=== PATIENT | female | born 1970 | race American Indian/Alaskan Native ===

== ENCOUNTER 2021-01-05 18:15 | Emergency (ER) | payer SELFPAY ==
[2021-01-05 20:03] VITALS: BP 124/92
--- NOTE | 2021-01-05 20:18 | Emergency Department Report ---
ED General Adult HPI - General Chief complaint: Skin/Abscess/Foreign Body Stated complaint: INSECT BITES Time Seen by Provider: 01/05/21 20:03 Source: patient Mode of arrival: Ambulatory Limitations: No Limitations - History of Present Illness Initial comments: 50-year-old female patient presents to the emergency department with complaints of a diffuse pruritic rash starting last night. Nobody else in the patient's household is exhibiting similar symptoms. No known sick contacts. No recent travel. No current steroid or antibiotic use. No new foods, medications, or environmental/occupational exposures. No history of prior allergic reactions. Denies fever, chills, shortness of breath, wheezing, chest tightness, swelling of the tongue/lips, abnormal bleeding/bruising. Denies all other complaints at this time. - Related Data Previous Rx's Medication Instructions Recorded Last Taken Type Hydrocortisone 1% [Hydrocortisone 1 applicatio TP TID #1 tube 01/05/21 Unknown Rx 1% CREAM] Hydroxyzine HCl [hydrOXYzine] 25 mg PO TID #30 tablet 01/05/21 Unknown Rx Naproxen 500 mg PO BID #20 tablet 01/05/21 Unknown Rx Allergies Allergy/AdvReac Type Severity Reaction Status Date / Time Penicillins Allergy Hives Verified 01/05/21 19:18 ED Review of Systems ROS: Stated complaint: INSECT BITES Other details as noted in HPI Other: GENERAL: Negative for fever, chills, weight change, anorexia, fatigue. ENT: Negative for ear pain, difficulty hearing, sore throat, nasal congestion, epistaxis. CARDIOVASCULAR: Negative for chest pain, palpitations, lower extremity swelling. PULMONARY: Negative for cough, dyspnea, wheezing, orthopnea, cyanosis. GASTROINTESTINAL: Negative for abdominal pain, nausea, vomiting, diarrhea, constipation. MUSCULOSKELETAL: Negative for joint pain, joint swelling, myalgias, back pain, neck pain. NEUROLOGICAL: Negative for headache, seizure, syncope, paresthesias, weakness. INTEGUMENTARY: Positive for rash and pruritus. HEMATOLOGICAL: Negative for hemoptysis, hematemesis, hematochezia, hematuria. PSYCHIATRIC: Negative for hallucinations, suicidal ideation, homicidal ideation, anxiety, depression. ED Past Medical Hx - Past Medical History Previous Medical History?: Yes Hx Hypertension: Yes - Surgical History Past Surgical History?: No - Social History Smoking Status: Never Smoker Substance Use Type: None - Medications Home Medications: Home Medications Medication Instructions Recorded Confirmed Last Taken Type Hydrocortisone 1% [Hydrocortisone 1 applicatio TP TID #1 tube 01/05/21 Unknown Rx 1% CREAM] Hydroxyzine HCl [hydrOXYzine] 25 mg PO TID #30 tablet 01/05/21 Unknown Rx Naproxen 500 mg PO BID #20 tablet 01/05/21 Unknown Rx ED Physical Exam - General Limitations: No Limitations - Other Other exam information: General: Awake, appropriately interactive, no acute distress. Neck: Supple. Full range of motion intact. Cardiovascular: Normal peripheral perfusion. Pulmonary: No respiratory distress. Patient is speaking normally without use of accessory muscles. Skin: Scattered poorly demarcated pruritic round areas of erythema along the trunk and extremities, most pronounced along the proximal right upper arm. No satellite lesions. No overlying warmth. No fluctuance or purulent drainage. No proximally streaking erythema. No target lesions. No bullae. No involvement of the palms/soles. No mucosal involvement. Neurological: No facial asymmetry. Speech is clear. Follows commands. Patient is alert and oriented. Musculoskeletal: Moves all four extremities spontaneously with normal range of motion. Psych: Cooperative. Appropriate mood and affect. ED Course Vital Signs 01/05/21 19:18 Temperature 99.1 F Pulse Rate 92 H Respiratory 18 Rate Blood Pressure 124/92 O2 Sat by Pulse 99 Oximetry ED Medical Decision Making - Medical Decision Making Differential diagnosis including but not limited to: contact dermatitis, cellulitis, erysipelas, tinea corporis, allergic reaction, Lorenz-Nuno syndrome, Lyme disease, rickettsial disease, erythema multiforme, pityriasis rosea The patient is alert and well appearing. There are no petichiae or purpura, no mucous membrane lesions, and no bullae. She is afebrile and hemodynamically stable. History and exam findings suggestive of allergic type rash. Patient will be discharged home with antihistamines, topical steroids, and oral NSAIDs for symptomatic relief. The patient is without findings concerning for worrisome systemic illness requiring further treatment, additional testing, admission, or specialist consultation at this time. Additional testing is not indicated at this time, but should be considered if symptoms worsen or recur. Discussed findings, presumptive diagnosis, need for follow-up and specific signs/symptoms that should prompt immediate return to the emergency department. Instructions were explained in detail to the patient in addition to giving written discharge information. Patient expressed understanding and was given the opportunity to ask questions, all of which were satisfactorily answered prior to discharge home. Critical care attestation.: If time is entered above; I have spent that time in minutes in the direct care of this critically ill patient, excluding procedure time. ED Disposition Clinical Impression: Rash and nonspecific skin eruption Disposition: TO HOME OR SELFCARE Is pt being admited?: No Does the pt Need Aspirin: No Condition: Stable Instructions: Rash, Adult, [id number] Additional Instructions: Take Naprosyn twice daily with food as needed for pain/inflammation. Take Hydroxyzine as directed for itching. Use Hydrocortisone cream as directed for itching/inflammation. Keep medication in the refrigerator for added symptomatic relief. You may also use Benadryl at nighttime as needed for itching. Do not drive or operate machinery while taking this medication. Apply cool compresses to the affected areas as needed for inflammation. Follow-up with primary care provider this week. Call tomorrow to schedule an appointment. See referral information below. Return to the emergency department immediately for new or worsening symptoms. Prescriptions: Hydrocortisone 1% [Hydrocortisone 1% CREAM] 1 applicatio TP TID #1 tube Hydroxyzine HCl [hydrOXYzine] 25 mg PO TID #30 tablet Naproxen 500 mg PO BID #20 tablet Referrals: JUAN GREWAL MD [Staff Physician] - 3-5 Days [facility] [Outside] - 3-5 Days [facility] [Outside] - 3-5 Days [facility] [Outside] - 3-5 Days [facility] [Provider Group] - 3-5 Days Time of Disposition: 20:21
== END 2021-01-05 21:00 | disposition home or self-care (01) ==
LOC: ED 18:15
DX: R21 Rash and other nonspecific skin eruption (principal); I10 Essential (primary) hypertension; Z79.899 Other long term (current) drug therapy
CPT/HCPCS: 99281

== ENCOUNTER 2021-09-20 17:06 | Emergency (ER) | payer SELFPAY ==
[2021-09-20 23:36] LABS: Basophils % (Auto) 0.4 % (0.0-1.8); Eosinophils # (Auto) 0.2 K/mm3 (0.0-0.4); Hematocrit 37.2 % (30.3-42.9); Hemoglobin 12.2 gm/dl (10.1-14.3); Lymphocytes # (Auto) 2.6 K/mm3 (1.2-5.4); Lymphocytes % (Auto) 47.3 % (13.4-35.0); Mean Corpuscular HGB Conc 33 % (30-34); Mean Corpuscular Volume 94 fl (79-97); Monocytes # (Auto) 0.4 K/mm3 (0.0-0.8); Platelet Count 279 K/mm3 (140-440); Red Blood Count 3.96 M/mm3 (3.65-5.03); Red Cell Distribution Width 14.4 % (13.2-15.2)
[2021-09-20 23:49] LABS: Alanine Aminotransferase 11 units/L (7-56); Albumin 4.1 g/dL (3.9-5); Blood Urea Nitrogen 20 mg/dL (7-17); Calcium 8.6 mg/dL (8.4-10.2); Hemolysis Index 9
[2021-09-20 23:54] LABS: BUN/Creatinine Ratio 29
[2021-09-21 02:09] LABS: Bilirubin,Urine NEG (Negative); Blood,Urine NEG (Negative); Color,Urine Straw (Yellow); Protein,Urine <15 mg/dL mg/dL (Negative); RBC,Urine < 1.0 /HPF (0.0-6.0); Urobilinogen,Urine < 2.0 mg/dL (<2.0); WBC,Urine < 1.0 /HPF (0.0-6.0)
[2021-09-21 02:44] VITALS: BP 133/80
== END 2021-09-21 03:00 | disposition home or self-care (01) ==
LOC: ED 17:06
DX: R11.2 Nausea with vomiting, unspecified (principal); K59.00 Constipation, unspecified; F17.200 Nicotine dependence, unspecified, uncomplicated; F10.20 Alcohol dependence, uncomplicated; F12.90 Cannabis use, unspecified, uncomplicated; I10 Essential (primary) hypertension
CPT/HCPCS: 36415; 74177; 80053; 81001; 83690; 85025; 96361; 96374; 99284; J2405; J7030; Q9967; Q0162

== ENCOUNTER 2022-03-28 17:41 | Emergency (ER) | payer OTHER | END 2022-03-29 20:01 | disposition left against medical advice (07) | LOC: ED 17:41 | DX: R09.89 Other specified symptoms and signs involving the circulatory and respiratory systems (principal); Z53.21 Procedure and treatment not carried out due to patient leaving prior to being seen by health care provider ==